=== PATIENT | female | born 2000 | race Two or more races ===

== ENCOUNTER 2022-03-12 01:16 | Emergency (ER) | payer BC ==
[~2022-03-12] VITALS: Ht 170.2 cm; Wt 71.7 kg
[2022-03-12] MEDS ORDERED: predniSONE 20 MG TABLET ONE (02:00)
[2022-03-12] MEDS ORDERED: FAMOTIDINE (20 MG) 20 MG TABLET ONE (02:00)
[2022-03-12] MEDS ORDERED: diphenhydrAMINE HCL 50 MG CAPSULE PO ONE (02:00)
[2022-03-12] MEDS ORDERED: diphenhydrAMINE HCL 50 MG CAPSULE ONE (02:00)
[2022-03-12] MEDS ORDERED: predniSONE 10 MG TABLET PO ONE (02:00)
[2022-03-12] MEDS: FAMOTIDINE (20 MG) 20 MG TABLET PO ONE ×2 (02:02→02:19)
[2022-03-12] MEDS ORDERED: FAMO-131 PO (02:15)
[2022-03-12] MEDS ORDERED: PRED50TA PO (02:15)
[2022-03-12 02:28] VITALS: BP 131/82
--- NOTE | 2022-03-12 02:28 | NUR ---
Patient discharged to home in stable condition. Written and verbal after care instructions given. Patient verbalizes understanding of instruction. Pt ambulatory with a steady gait
== END 2022-03-12 02:28 | disposition home or self-care (01) ==
LOC: ER 01:38
DX: T78.40XA Allergy, unspecified, initial encounter (principal); F17.200 Nicotine dependence, unspecified, uncomplicated; Z60.2 Problems related to living alone; X58.XXXA Exposure to other specified factors, initial encounter
CPT/HCPCS: 99283; J7512 ×2; Q0163